=== PATIENT | male | born 1950 | race Caucasian/White ===

== ENCOUNTER 2020-11-25 20:58 | Emergency (ER) | payer OTHER ==
[2020-11-25] MEDS ORDERED: FENTANYL CITR 100 MCG/2 ML ONE (21:46)
[2020-11-25 22:02] LABS: Basophils % 0.6 % (0-1.3); Hematocrit 46.2 % (39.6-49.0); Lymphocytes % 11.5 % (15.3-44.8); MPV 8.6 fL (7.6-11.3); RBC Red Blood Cell Count 4.87 M/uL (4.33-5.43)
[2020-11-25 22:11] LABS: Potassium 3.7 mmol/L (3.5-5.1)
--- NOTE | 2020-11-25 22:18 | EDPHYS ---
Physician Documentation [facility] Name: Madhav Mendez Age: 70 yrs Sex: Male : 1950 Arrival Date: 11/25/2020 Time: 21:19 Bed 13 Private MD: ED Physician Shola Cook HPI: 11/25 21:26 This 70 yrs old Male presents to ER via Unassigned with complaints of Fall pm1 Injury. 21:26 Details of fall: The patient fell from an upright position, while walking. Onset: The pm1 symptoms/episode began/occurred just prior to arrival. Associated injuries: The patient sustained left hip. Severity of symptoms: in the emergency department the symptoms are unchanged. The patient has not experienced similar symptoms in the past. 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 Patient was walking to the trash can placing primarily all his weight on the right leg and holding on with his right hand. He turned and fell on his left hip. No headache, head injury, neck pain or LOC. Presenting with left hip pain. Historical: - Allergies: 23:09 No Known Allergies; - Home Meds: 23:09 None [Active]; - PMHx: 23:09 Diabetes - NIDDM; - PSHx: 23:09 Tonsillectomy; - Immunization history:: Adult Immunizations not up to date. - Immunization history: Last tetanus immunization: unknown. - Social history:: Smoking status: Patient/guardian denies using. ROS: 21:26 Constitutional: Negative for fever, chills, and weight loss, Cardiovascular: Negative pm1 for chest pain, palpitations, and edema, Respiratory: Negative for shortness of breath, cough, wheezing, and pleuritic chest pain, Abdomen/GI: Negative for abdominal pain, nausea, vomiting, diarrhea, and constipation, Back: Negative for injury and pain. 21:26 Skin: Negative for injury, rash, and discoloration, Neuro: Negative for headache, weakness, numbness, tingling, and seizure. 21:26 MS/extremity: Positive for pain, of the left hip. Exam: 21:26 Constitutional: This is a well developed, well nourished patient who is awake, alert, pm1 and in no acute distress. Head/Face: Normocephalic, atraumatic. Neck: Trachea midline, no thyromegaly or masses palpated, and no cervical lymphadenopathy. Supple, full range of motion without nuchal rigidity, or vertebral point tenderness. No Meningismus. 21:26 Skin: Warm, dry with normal turgor. Normal color with no rashes, no lesions, and no evidence of cellulitis. 21:26 Cardiovascular: Exam negative for acute changes, Rate: normal, Rhythm: regular, Pulses: no pulse deficits are appreciated. 21:26 Respiratory: Exam negative for acute changes, respiratory distress, shortness of breath. 21:26 Musculoskeletal/extremity: Extremities: grossly normal except: noted in the left hip: pain, tenderness, Pulses: noted to be 2+ in the left dorsalis pedis artery, the left foot Sensation intact. 21:26 Neuro: Exam negative for acute changes, Orientation: is normal, Mentation: is normal. Vital Signs: 21:30 BP 187 / 74; Pulse 9; Resp 18; Temp 97.8; Pulse Ox 100% ; Weight 68.04 kg; Height 5 ft. 7 in. (170.18 cm); Pain 9/10; 23:00 BP 164 / 64; Pulse 81; Resp 18; Pulse Ox 96% on R/A; 23:30 BP 139 / 72; Pulse 72; Resp 18; Pulse Ox 97% on R/A; 11/26 00:30 BP 161 / 76; Pulse 76; Resp 18; Pulse Ox 95% ; 11/25 21:30 Body Mass Index 23.49 (68.04 kg, 170.18 cm) Shin Coma Score: 11/25 21:30 Eye Response: spontaneous(4). Verbal Response: oriented(5). Motor Response: obeys wh commands(6). Total: 15. Trauma Score (Adult): 21:30 Eye Response: spontaneous(1); Verbal Response: oriented(1); Motor Response: obeys wh commands(2); Systolic BP: > 89 mm Hg(4); Respiratory Rate: 10 to 29 per min(4); [place] Score: 15; Trauma Score: 12 MDM: 21:21 Patient medically screened. pm1 22:10 Data reviewed: vital signs. pm1 22:10 Counseling: I had a detailed discussion with the patient and/or guardian regarding: the pm1 historical points, exam findings, and any diagnostic results supporting the discharge/admit diagnosis, radiology results, the need to transfer to another facility, [facility] does not immediately have the required specialist, No orthopedics absorption operator. 11/25 21:25 Order name: Basic Metabolic Panel; Complete Time: 22:31 11/25 21:25 Order name: CBC with Diff; Complete Time: 22:31 11/25 21:25 Order name: Type And Screen; Complete Time: 00:35 11/25 21:32 Order name: Hip Left Wo Con EDMS 11/25 21:25 Order name: Labs collected and sent; Complete Time: 21:48 11/25 22:31 Order name: NPO; Complete Time: 22:48 pm1 Administered Medications: 21:48 Drug: fentaNYL (PF) 25 mcg {Note: RASS 0.} Route: IVP; Site: right forearm; 23:13 Follow up: Response: No adverse reaction; Pain is decreased; RASS: Alert and Calm (0) 22:42 Drug: NS 0.9% 1000 ml Route: IV; Rate: 100 ml/hr; Site: right forearm; 23:14 Follow up: Response: No adverse reaction; IV Status: Infusion continued upon transfer wh 22:44 Drug: morphine 4 mg {Note: RASS 0.} Route: IVP; Site: right forearm; 23:13 Follow up: Response: No adverse reaction; Pain is decreased; RASS: Alert and Calm (0) 22:46 Drug: Zofran (Ondansetron) 4 mg Route: IVP; Site: right forearm; 23:12 Follow up: Response: No adverse reaction; Nausea is decreased 11/26 00:26 Drug: fentaNYL (PF) 25 mcg {Note: RASS 0.} Route: IVP; Site: right forearm; 01:02 Follow up: Response: No adverse reaction; Pain is decreased; RASS: Alert and Calm (0) Disposition: 05:33 Co-signature as Attending Physician, Shola Cook MD. [email or web address] Disposition: 11/25/20 22:17 Transfer ordered to [facility]. Diagnosis is Fracture of unspecified part of neck of left femur. - Reason for transfer: Specialty. - Accepting physician is [facility]. - Condition is Stable. - Problem is new. - Symptoms have improved. Signatures: Dispatcher [employer] EDTX Dereck Barnes, AUTOCUTTER AUTOCUTTER pm1 Sukhjinder Mccormack Maurice, MD MD mh7 Corrections: (The following items were deleted from the chart) 11/25 21:32 21:29 CT LEFT HIP WO CONTRAST ordered. EDTX EDTX 11/26 01:03 11/25 22:17 11/25/2020 22:17 Transfer ordered to [facility]. Diagnosis is wh Fracture of unspecified part of neck of left femur. Reason for transfer: Specialty. Accepting physician is [facility]. Condition is Stable. Problem is new. Symptoms have improved. pm1
[2020-11-25] MEDS ORDERED: NA CHLORIDE 0.9% 1,000 ML ONE (22:52)
[2020-11-25] MEDS ORDERED: MORPHINE 4 MG/ML SYR ONE (22:52)
[2020-11-25] MEDS ORDERED: ONDANSETRON 4 MG/2 ML VIAL ONE (22:52)
[2020-11-26] MEDS ORDERED: FENTANYL CITR 100 MCG/2 ML ONE (00:31)
--- NOTE | 2020-11-26 01:04 | ER ---
Nurse's Notes [facility] Name: Madhav Mendez Age: 70 yrs Sex: Male : 1950 Arrival Date: 11/25/2020 Time: 21:19 Bed 13 Private MD: Diagnosis: Fracture of unspecified part of neck of left femur Presentation: 11/25 21:20 Chief complaint: EMS states: fell from standing position, denies LOC and not on blood wh thinners. PT C/O left hip pain. Pt with Hx of CVA with left sided partial paralysis. Care prior to arrival: Glucose check: 132. Mechanism of Injury: Fall. Trauma event details: Injury occurred in the [facility]. 21:20 Acuity: KAITY 3 21:20 Method Of Arrival: EMS: [facility] 21:30 Coronavirus screen: Client denies travel out of the [place] in the last 14 days. At this time, the client does not indicate any symptoms associated with coronavirus-19. Ebola Screen: Patient negative for fever greater than or equal to 101.5 degrees Fahrenheit, and additional compatible Ebola Virus Disease symptoms Patient denies exposure to infectious person. Initial Sepsis Screen: Does the patient meet any 2 criteria? No. Patient's initial sepsis screen is negative. Does the patient have a suspected source of infection? No. Patient's initial sepsis screen is negative. Risk Assessment: Do you want to hurt yourself or someone else? Patient reports no desire to harm self or others. Onset of symptoms was November 25, 2020. Trauma Activation: Physician: ED Physician; Name: ; Notified At: 21:25; Arrived At: 21:25 Physician: General Surgeon; Name: ; Notified At: 21:25; Arrived At: Physician: Radiology; Name: ; Notified At: 21:25; Arrived At: Physician: Respiratory; Name: ; Notified At: 21:25; Arrived At: Physician: Lab; Name: ; Notified At: 21:25; Arrived At: Historical: - Allergies: 23:09 No Known Allergies; - Home Meds: 23:09 None [Active]; - PMHx: 23:09 Diabetes - NIDDM; - PSHx: 23:09 Tonsillectomy; - Immunization history:: Adult Immunizations not up to date. - Immunization history: Last tetanus immunization: unknown. - Social history:: Smoking status: Patient/guardian denies using. Screenin:30 Abuse screen: Denies threats or abuse. Denies injuries from another. Nutritional screening: No deficits noted. Tuberculosis screening: No symptoms or risk factors identified. Fall Risk Fall in past 12 months (25 points). Secondary diagnosis (15 points) CVA. Primary Survey: 21:30 NO uncontrolled hemorrhage observed. A: The patient is alert. Airway: patent. Breathing/Chest: Respiratory pattern: regular, Respiratory effort: spontaneous, unlabored. Circulation: Pulses: palpable left dorsalis pedis artery. Skin color: pink. Disability Alert. Exposure/Environment: All clothing and personal items were removed. Forensic evidence collection is not deemed to be indicated at this time. Items placed in patient belonging bag. There is no evidence of uncontrolled external bleeding. Obvious injury(ies) are noted at this time: hip fracture A warming method has been applied: A warm blanket has been provided to the patient. 22:30 Reassessment Airway Airway Patent Breathing/Chest Respiratory pattern Regular wh Respiratory effort Spontaneous Unlabored Circulation Color [place] Disability Alert. Assessment: 21:30 General: Appears in no apparent distress. Behavior is calm, cooperative, appropriate for age. Pain: Complains of pain in left hip Pain does not radiate. Neuro: Level of Consciousness is awake, alert, obeys commands, Oriented to person, place, time, situation, Appropriate for age. Cardiovascular: Capillary refill < 3 seconds. Respiratory: Airway is patent Respiratory effort is even, unlabored, Respiratory pattern is regular, symmetrical. GI: Abdomen is flat, non-distended. : No signs and/or symptoms were reported regarding the genitourinary system. EENT: No signs and/or symptoms were reported regarding the EENT system. Derm: Skin is intact, is healthy with good turgor, Skin is pink, warm \T\ dry. normal. Musculoskeletal: Range of motion: limited in left arm and left leg Hypertrophy noted in left arm. 23:00 Reassessment: Patient appears in no apparent distress at this time. No changes from previously documented assessment. Patient and/or family updated on plan of care and expected duration. Pain level reassessed. Patient is alert, oriented x 3, equal unlabored respirations, skin warm/dry/pink. 23:43 Reassessment: Report given to Vidhi Felix RN. 11/26 00:30 Reassessment: Patient appears in no apparent distress at this time. Patient and/or wh family updated on plan of care and expected duration. Pain level reassessed. Patient is alert, oriented x 3, equal unlabored respirations, skin warm/dry/pink. Vital Signs: 11/25 21:30 BP 187 / 74; Pulse 9; Resp 18; Temp 97.8; Pulse Ox 100% ; Weight 68.04 kg; Height 5 ft. wh 7 in. (170.18 cm); Pain 9/10; 23:00 BP 164 / 64; Pulse 81; Resp 18; Pulse Ox 96% on R/A; wh 23:30 BP 139 / 72; Pulse 72; Resp 18; Pulse Ox 97% on R/A; 11/26 00:30 BP 161 / 76; Pulse 76; Resp 18; Pulse Ox 95% ; 11/25 21:30 Body Mass Index 23.49 (68.04 kg, 170.18 cm) Shin Coma Score: 11/25 21:30 Eye Response: spontaneous(4). Verbal Response: oriented(5). Motor Response: obeys commands(6). Total: 15. Trauma Score (Adult): 21:30 Eye Response: spontaneous(1); Verbal Response: oriented(1); Motor Response: obeys commands(2); Systolic BP: > 89 mm Hg(4); Respiratory Rate: 10 to 29 per min(4); [place] Score: 15; Trauma Score: 12 ED Course: 21:19 Patient arrived in ED. 21:20 Sukhjinder Mccormack is Primary Nurse. wh 21:21 Dereck Barnes NP is PHCP. pm1 21:21 Shola Cook MD is Attending Physician. pm1 21:30 Patient maintains SpO2 saturation greater than 95% on room air. Thermoregulation: warm wh blanket given to patient. 21:30 Arm band placed on right wrist. 21:30 Patient has correct armband on for positive identification. Bed in low position. Call wh light in reach. Side rails up X 1. Pulse ox on. NIBP on. 21:40 Inserted saline lock: 20 gauge in right forearm, using aseptic technique. Blood wh collected. 21:52 Hip Left Wo Con In Process Unspecified. EDMS 23:05 Triage completed. 23:12 Initiated transfer at [facility] with Nell Harper. Stated she would check on tt3 beds and call back. 23:27 Nell Harper called back with admin approval. The orthopedic surgeon accepted tt3 without conference. The pt is going to [facility] ER. Nurse to call report to . Face sheet and MOT faxed to per Nell's request. 11/26 01:00 No provider procedures requiring assistance completed. Patient transferred, IV remains in place. Administered Medications: 11/25 21:48 Drug: fentaNYL (PF) 25 mcg {Note: RASS 0.} Route: IVP; Site: right forearm; 23:13 Follow up: Response: No adverse reaction; Pain is decreased; RASS: Alert and Calm (0) 22:42 Drug: NS 0.9% 1000 ml Route: IV; Rate: 100 ml/hr; Site: right forearm; 23:14 Follow up: Response: No adverse reaction; IV Status: Infusion continued upon transfer 22:44 Drug: morphine 4 mg {Note: RASS 0.} Route: IVP; Site: right forearm; 23:13 Follow up: Response: No adverse reaction; Pain is decreased; RASS: Alert and Calm (0) 22:46 Drug: Zofran (Ondansetron) 4 mg Route: IVP; Site: right forearm; 23:12 Follow up: Response: No adverse reaction; Nausea is decreased 11/26 00:26 Drug: fentaNYL (PF) 25 mcg {Note: RASS 0.} Route: IVP; Site: right forearm; 01:02 Follow up: Response: No adverse reaction; Pain is decreased; RASS: Alert and Calm (0) Intake: 11/25 23:30 IV: 300ml; Total: 300ml. Outcome: 22:17 ER care complete, transfer ordered by . pm1 23:00 Patient's length of stay in the Emergency Department was greater than 2 hours. Pt for transferPatient's length of stay extended due to 11/26 01:00 Transferred by ground EMS to [facility], Transfer form completed. X-rays sent wh w/ patient. Note: Report given to [place] [id number] [facility] Condition: stable Instructed on the need for transfer. 01:03 Patient left the ED. Signatures: Dispatcher [employer] EDMS Dereck Barnes, JOEY KEYBOARD SPECIALIST pm1 Sukhjinder Mccormack Ghulam Wild tt3 Corrections: (The following items were deleted from the chart) 11/25 23:16 23:14 Initiated transfer at [facility] with Nell Harper. Stated she would tt3 check on beds and call back. tt3
[2020-11-26 01:08] VITALS: TEMP 97.8
[2020-11-26 01:17] VITALS: BP 161/76; O2SAT 95
--- NOTE | 2020-11-26 13:19 | RAD REPORT ---
EXAM DESCRIPTION: Chest Single View CLINICAL HISTORY: 1 years Male, CHEST PAIN COMPARISON: None FINDINGS: No focal lung consolidation. No pleural effusion. No pneumothorax. Cardiomediastinal silhouette is within normal limits. Mild vascular congestion. No acute osseous abnormality. IMPRESSION: No acute cardiopulmonary disease. Electronically signed by: Leonardo Dawson DO 11/25/2020 10:40 PM LARDER COOK Due to temporary technical issues with the PACS/Fluency reporting system, reports are being signed by the in house radiologists without review as a courtesy to insure prompt reporting. The interpreting radiologist is fully responsible for the content of the report.
== END 2020-11-26 01:03 | disposition short-term general hospital (02) ==
LOC: ER 20:58
DX: S72.002A Fracture of unspecified part of neck of left femur, initial encounter for closed fracture (principal); W18.30XA Fall on same level, unspecified, initial encounter; Y93.9 Activity, unspecified; Y92.9 Unspecified place or not applicable; Z86.73 Personal history of transient ischemic attack (TIA), and cerebral infarction without residual deficits
CPT/HCPCS: 96361; 85025; 80048; 36415; 86900; 86850; 86901; 73700; 96375; 96374; 99285; J3010 ×2; J7030; J2405

== ENCOUNTER 2023-04-29 03:08 | Emergency (ER) | payer OTHER ==
[2023-04-29 03:30] LABS: Blood Gas Oxyhemoglobin 96.2 % (94-97); Blood O2 Saturation 98.4 % (92-98.5)
[2023-04-29 03:49] LABS: Absolute Lymphocytes (CBC) 0.9 K/uL (0.7-4.9); Hematocrit 42.9 % (39.6-49.0); Lymphocytes % 2.2 % (15.3-44.8); MCV 91.4 fL (80-100); MPV 7.1 fL (7.6-11.3); RBC Red Blood Cell Count 4.69 M/uL (4.33-5.43)
[2023-04-29 04:02] LABS: Protime INR 1.59
[2023-04-29 04:10] LABS: Bilirubin Total 0.7 mg/dL (0.2-1.0); Potassium 5.2 mEq/L (3.5-5.1)
[2023-04-29] MEDS ORDERED: CEFEPIME 2 GM VIAL ONE (04:24)
[2023-04-29 04:25] LABS: Troponin High Sensitivity 398.8 pg/mL (<58.9)
[2023-04-29] MEDS ORDERED: VANCOMYCIN 1 GM/VIAL ONE (04:25)
[2023-04-29] MEDS ORDERED: NA CHLORIDE 0.9% 250 ML ONE (04:25)
[2023-04-29] MEDS ORDERED: NA CHLORIDE 0.9% 100 ML ONE (04:25)
[2023-04-29 05:26] LABS: Blood Morphology Comment NOT SEEN (NOT SEEN); Platelet Estimate INCR
[2023-04-29 06:38] LABS: SARS-CoV-2 Antigen Rapid Res Negative (Negative)
--- NOTE | 2023-04-29 06:51 | EDPHYS ---
Physician Documentation [facility] Name: Madhav Mendez Age: 73 yrs Sex: Male : 1950 Arrival Date: 04/29/2023 Time: 03:08 Bed 2 Private MD: ED Physician Jimmy Isaac HPI: 04/29 03:16 This 73 yrs old Male presents to ER via Unassigned with complaints of Breathing rt Difficulty. 03:16 Patient presents to the ED from long term for difficulty breathing, low oxygen rt saturations. Patient's oxygen saturations were reportedly 54%, improved on the CPAP by EMS. The patient states that breathing is doing better. Unclear the time of onset is. Patient denies other acute complaints at this time. Symptoms are severe in severity, no other aggravating or alleviating factors.. Historical: - Allergies: 03:19 No Known Allergies; pf1 - PMHx: 03:19 Diabetes mellitus; Cellulitis; covid-19; Anemia; neuropathy; Hypertensive disorder; pf1 generalized weakness; Cerebrovascular accident; left sided deficients; hemiplegia and hemiparesis; cognitive communication deficient; hyperlipidemia; Depressive disorder; gangrene of left lower extremity/foot; Peripheral vascular disease; Alcohol dependence; - Immunization history:: Pneumococcal vaccine is up to date, Flu vaccine is up to date. - Social history:: Smoking status: unknown. ROS: 03:16 Constitutional: Negative for fever, chills, and weight loss, Cardiovascular: Negative rt for chest pain, palpitations, and edema, Abdomen/GI: Negative for abdominal pain, nausea, vomiting, diarrhea, and constipation, Neuro: Negative for headache, weakness, numbness, tingling, and seizure, Psych: Negative for depression, anxiety, suicide ideation, homicidal ideation, and hallucinations. 03:16 Respiratory: Positive for cough, shortness of breath. Exam: 03:16 Constitutional: This is a well developed, well nourished patient who is awake, alert, rt and in no acute distress. Head/Face: Normocephalic, atraumatic. Chest/axilla: Normal chest wall appearance and motion. Nontender with no deformity. No lesions are appreciated. Cardiovascular: Regular rate and rhythm with a normal S1 and S2. No gallops, murmurs, or rubs. Normal PMI, no JVD. No pulse deficits. Abdomen/GI: Soft, non-tender, with normal bowel sounds. No distension or tympany. No guarding or rebound. No evidence of tenderness throughout. 03:16 Neuro: Awake and alert, GCS 15, oriented to person, place, time, and situation. Cranial nerves II-XII grossly intact. Motor strength 5/5 in all extremities. Sensory grossly intact. Cerebellar exam normal. Normal gait. Psych: Awake, alert, with orientation to person, place and time. Behavior, mood, and affect are within normal limits. 03:16 Respiratory: Diminished breath sounds with faint wheezes heard on all lung peterson, moderate respiratory distress. 03:16 Musculoskeletal/extremity: Dry gangrene noted to left foot. 03:53 ECG was reviewed by the Attending Physician. rt Vital Signs: 03:10 BP 127 / 65; Pulse 100; Resp 14; Temp 97.7; Pulse Ox 100% on BiPAP; Weight 61.5 kg; pf1 04:38 BP 134 / 72; Pulse 97; Resp 22 S; Pulse Ox 97% on BiPAP; as6 05:52 BP 131 / 64; Pulse 90; Resp 12 S; Pulse Ox 99% on 90 lpm BiPAP; as6 06:40 BP 127 / 66; Pulse 94; Resp 13 S; Pulse Ox 100% on 90 lpm BiPAP; as6 07:32 BP 140 / 70; Pulse 89; Resp 16; Temp 97.2; Pulse Ox 100% ; ll1 08:30 BP 136 / 62; Pulse 83; Resp 15; Pulse Ox 98% on BiPAP; ll1 09:18 BP 124 / 54; Pulse 89; Resp 14; Pulse Ox 100% on BiPAP; ll1 10:12 BP 112 / 60; Pulse 92; Resp 16; Pulse Ox 100% on BiPAP; ll1 10:43 BP 112 / 61; Pulse 88; Resp 15; Pulse Ox 100% on BiPAP; ll1 11:03 BP 117 / 61; Pulse 88; Resp 15; Pulse Ox 99% on BiPAP; ll1 11:37 BP 111 / 59; Pulse 90; Resp 16; Temp 97.5(TE); Pulse Ox 100% ; ll1 MDM: 03:12 Patient medically screened. rt 06:50 Differential diagnosis: Sepsis, pneumonia, pneumothorax, pulmonary embolism, renal rt failure. Data reviewed: vital signs, nurses notes, lab test result(s), EKG, radiologic studies. Consideration of Admission/Observation Patient was admitted/placed on observation. Management of patient was discussed with the following: Hospitalist: States that patient would best be served by going to a higher level of care, will initiate transfer. I considered the following discharge prescriptions or medication management in the emergency department Medications were administered in the Emergency Department. See MAR. Independent interpretation of the following test(s) in the Emergency Department X-Ray: My interpretation is No pneumothorax, interpretation of the x-ray images. Care significantly affected by the following chronic conditions: Diabetes. Counseling: I had a detailed discussion with the patient and/or guardian regarding: the historical points, exam findings, and any diagnostic results supporting the discharge/admit diagnosis, lab results, radiology results, the need to transfer to another facility, for higher level of care. Response to treatment: the patient's symptoms have markedly improved after treatment. 07:38 ED course: Accepted for transfer to [facility], hemodynamically stable for transfer. rn . 04/29 03:13 Order name: Blood Culture Adult (2) rt 04/29 03:13 Order name: CBC with Diff; Complete Time: 05:28 rt 04/29 03:13 Order name: CMP; Complete Time: 04:25 rt 04/29 03:13 Order name: Lactate w/ 2H reflex if indic.; Complete Time: 04:25 rt 04/29 03:13 Order name: Protime (+inr); Complete Time: 04:07 rt 04/29 03:13 Order name: Ptt, Activated; Complete Time: 04:07 rt 04/29 03:13 Order name: Troponin High Sensitivity; Complete Time: 04:25 rt 04/29 03:13 Order name: BNP; Complete Time: 04:25 rt 04/29 03:13 Order name: ABG; Complete Time: 04:07 rt 04/29 05:27 Order name: Manual Differential; Complete Time: 05:28 EDMS 04/29 06:03 Order name: SARS RAPID; Complete Time: 06:44 ds4 04/29 07:12 Order name: Lactate Sepsis 2 HR Follow-up; Complete Time: 07:33 EDMS 04/29 03:13 Order name: Chest Single View XRAY rt 04/29 03:13 Order name: BIPAP rt 04/29 04:46 Order name: Foot Left 3 View XRAY la1 04/29 05:06 Order name: Chest Wo Con CT la1 04/29 03:13 Order name: EKG; Complete Time: 03:14 rt 04/29 03:13 Order name: Accucheck; Complete Time: 03:57 rt 04/29 03:13 Order name: Cardiac monitoring; Complete Time: 03:41 rt 04/29 03:13 Order name: EKG - Nurse/Tech; Complete Time: 03:53 rt 04/29 03:13 Order name: IV Saline Lock - Large Bore; Complete Time: 03:41 rt 04/29 03:13 Order name: Labs collected and sent; Complete Time: 03:41 rt 04/29 03:13 Order name: O2 Per Protocol; Complete Time: 03:41 rt 04/29 03:13 Order name: O2 Sat Monitoring; Complete Time: 03:41 rt 04/29 03:13 Order name: Vital Signs; Complete Time: 03:41 rt EC:53 Rate is 99 beats/min. Rhythm is regular, Normal Sinus Rhythm with No ectopy. QRS [place] rt is Normal. PA interval is normal. QRS interval is normal. QT interval is normal. No Q waves. T waves are Normal. No ST changes noted. Interpreted by me. Administered Medications: 04:20 Drug: Cefepime IVPB 2 grams Route: IVPB; Rate: 200 ml/hr; Infused Over: 30 mins; Site: as6 left antecubital; 07:31 Follow up: IV Status: Completed infusion; IV Intake: 100ml ll1 04:38 Drug: vancoMYCIN IVPB 1 grams Route: IVPB; Infused Over: 2 hrs; Site: right antecubital;as6 07:31 Follow up: Response: No adverse reaction; IV Status: Completed infusion; IV Intake: ll1 250ml 07:37 CANCELLED (Duplicate Order): NS 0.9% IV 1000 ml IV at 1000 ml once rn 07:48 Drug: NS 0.9% IV (30 ml/kg) 30 ml/kg {Note: 1 L NS L AC, 1 L NS R AC.} Route: IV; Rate: ll1 bolus; Site: left antecubital; 09:00 Follow up: Response: No adverse reaction; IV Status: Completed infusion; IV Intake: ll1 2000ml Disposition: 06:55 Critical Care:. rt Disposition Summary: 04/29/23 06:50 Transfer Ordered Transfer Location: [facility] rt Reason: Higher level of care rt Condition: Serious rt Problem: new rt Symptoms: have improved rt Accepting Physician: (04/29/23 11:58) ll1 Diagnosis - Acute and chronic respiratory failure with hypoxia rt - Acute kidney failure, unspecified rt - Severe sepsis without septic shock rt - Dry gangrene of left lower extremity rt Forms: - Medication Reconciliation Form rt - SBAR form rt Critical care time excluding procedures: 06:55 Critical care time: Bedside Care: 30 minutes, Consultation: 10 minutes. Total time: 40 rt minutes Signatures: Dispatcher [employer] EDMS Jimmy Isaac MD MD rn Alfa Taylor, GEOLOGIST PETROLEUM-C GEOLOGIST PETROLEUM-Cla1 Calvin Starks RN RN ll1 Isak Mobley RN RN as6 Guero Mcneal MD MD rt Mariaelena Huerta RN RN pf1 Corrections: (The following items were deleted from the chart) 03:29 03:19 PMHx: Diabetes - NIDDM; pf1 pf1 07:37 07:37 NS 0.9% IV 1000 ml IV at 1000 ml once ordered. rn rn 11:58 06:50 rt ll1
--- NOTE | 2023-04-29 06:51 | ER ---
Nurse's Notes [facility] Name: Madhav Mendez Age: 73 yrs Sex: Male : 1950 Arrival Date: 04/29/2023 Time: 03:08 Bed 2 Private MD: Diagnosis: Acute and chronic respiratory failure with hypoxia;Acute kidney failure, unspecified;Severe sepsis without septic shock;Dry gangrene of left lower extremity Presentation: 04/29 03:10 Chief complaint: EMS states: EMS C/O patient having difficulty breathing with 02 pf1 saturation of 50's on RA. EMS stated patient 02 saturation in the 80's on Nonrebreather then placed CPAP on patient. Patient has gangrene to left lower extremity and foot. Patient from [facility]. 03:10 Method Of Arrival: EMS: [facility] pf1 03:10 Initial Sepsis Screen: Does the patient meet any 2 criteria? No. Patient's initial pf1 sepsis screen is negative. Does the patient have a suspected source of infection? No. Patient's initial sepsis screen is negative. Risk Assessment: Do you want to hurt yourself or someone else? Unable to obtain. 03:10 Acuity: KAITY 2 pf1 03:30 Ebola Screen: Patient negative for fever greater than or equal to 101.5 degrees pf1 Fahrenheit, and additional compatible Ebola Virus Disease symptoms. 07:30 Coronavirus screen: Client denies travel out of the [place] in the last 14 days. ll1 difficulty breathing, fatigue, shortness of breath, Client presents with at least one sign or symptom that may indicate coronavirus-19. Standard/surgical mask placed on the client. Onset of symptoms is unknown. Historical: - Allergies: 03:19 No Known Allergies; pf1 - PMHx: 03:19 Diabetes mellitus; Cellulitis; covid-19; Anemia; neuropathy; Hypertensive disorder; pf1 generalized weakness; Cerebrovascular accident; left sided deficients; hemiplegia and hemiparesis; cognitive communication deficient; hyperlipidemia; Depressive disorder; gangrene of left lower extremity/foot; Peripheral vascular disease; Alcohol dependence; - Immunization history:: Pneumococcal vaccine is up to date, Flu vaccine is up to date. - Social history:: Smoking status: unknown. Screenin:58 [facility] ED Fall Risk Assessment (Adult) Score/Fall Risk Level 0 - 2 = Low Risk. Abuse as6 screen: Denies threats or abuse. Denies injuries from another. Nutritional screening: No deficits noted. Tuberculosis screening: No symptoms or risk factors identified. Assessment: 03:25 General: Appears ill, slender, unkempt. Pain: Denies pain. Neuro: Level of as6 Consciousness is awake, alert, obeys commands. Cardiovascular: Pulses are absent in left posterior tibial artery and left dorsalis pedis artery. Respiratory: Respiratory effort is labored, Breath sounds are diminished bilaterally. Breath sounds with wheezes bilaterally. Derm: Wound noted left lateral ankle, lateral aspect of left foot, left Achilles, left heel, left medial ankle, medial aspect of left foot, anterior aspect of left ankle and dorsum of left foot Wound is blanked, gangrene. 03:25 Musculoskeletal: Capillary refill < 3 seconds, in left toes. contractor to left arm and as6 bilateral legs. 07:00 Reassessment: No changes from previously documented assessment. Report received from [facility] lieutenant shift supervisor RN. 07:20 Pain: Complains of pain in left leg Quality of pain is described as aching. Neuro: No ll1 deficits noted. Respiratory: Airway is patent Trachea midline Respiratory effort is even, labored, Respiratory pattern is regular, symmetrical, Patient placed on BiPAP: Respiratory Rate: 20 Breath sounds are clear bilaterally. 07:20 General: Appears uncomfortable, ill, unkempt, Behavior is cooperative, appropriate for [facility] age, quiet. 07:20 Derm: Skin is fragile, Skin is black, Skin temperature is cold Wound noted LLE. ll1 Musculoskeletal: Capillary refill is > 3 seconds, in left toes. Tenderness present in LLE. 07:21 Reassessment: No changes from previously documented assessment. Patient and/or family ll1 updated on plan of care and expected duration. Pain level reassessed. Dr. Isaac at . 08:15 Reassessment: No changes from previously documented assessment. Patient and/or family ll1 updated on plan of care and expected duration. Pain level reassessed. 09:18 Reassessment: No changes from previously documented assessment. Patient and/or family ll1 updated on plan of care and expected duration. Pain level reassessed. 10:15 Reassessment: No changes from previously documented assessment. Patient and/or family ll1 updated on plan of care and expected duration. Pain level reassessed. 11:05 Reassessment: No changes from previously documented assessment. Javier at [facility] skilled nursing notified of patient transfer. Given [facility] [employer] phone number. No questions at this time. Vital Signs: 03:10 BP 127 / 65; Pulse 100; Resp 14; Temp 97.7; Pulse Ox 100% on BiPAP; Weight 61.5 kg; pf1 04:38 BP 134 / 72; Pulse 97; Resp 22 S; Pulse Ox 97% on BiPAP; as6 05:52 BP 131 / 64; Pulse 90; Resp 12 S; Pulse Ox 99% on 90 lpm BiPAP; as6 06:40 BP 127 / 66; Pulse 94; Resp 13 S; Pulse Ox 100% on 90 lpm BiPAP; as6 07:32 BP 140 / 70; Pulse 89; Resp 16; Temp 97.2; Pulse Ox 100% ; ll1 08:30 BP 136 / 62; Pulse 83; Resp 15; Pulse Ox 98% on BiPAP; ll1 09:18 BP 124 / 54; Pulse 89; Resp 14; Pulse Ox 100% on BiPAP; ll1 10:12 BP 112 / 60; Pulse 92; Resp 16; Pulse Ox 100% on BiPAP; ll1 10:43 BP 112 / 61; Pulse 88; Resp 15; Pulse Ox 100% on BiPAP; ll1 11:03 BP 117 / 61; Pulse 88; Resp 15; Pulse Ox 99% on BiPAP; ll1 11:37 BP 111 / 59; Pulse 90; Resp 16; Temp 97.5(TE); Pulse Ox 100% ; ll1 ED Course: 03:09 Patient arrived in ED. pf1 03:11 Cori Garcia, KAYLA is Primary Nurse. aa9 03:12 Guero Mcneal MD is Attending Physician. rt 03:12 Maintain EMS IV. Dressing intact. Good blood return noted. Site clean \T\ dry. Gauge \T\ pf 1 site: 20 gauge to RAC. 03:33 Triage completed. pf1 03:41 Inserted saline lock: 20 gauge in left antecubital area, using aseptic technique. Blood as6 collected. 04:39 Arm band placed on. as6 04:44 Chest Single View XRAY In Process Unspecified. EDMS 04:58 Bed in low position. Call light in reach. Side rails up X2. as6 05:11 Foot Left 3 View XRAY In Process Unspecified. EDMS 05:[address] In Process Unspecified. EDMS 07:12 Attending Physician role handed off by Guero Mcneal MD rn 07:12 Jimmy Isaac MD is Attending Physician. rn 07:13 Notified ED physician of a critical lab result(s). repeat lactate 4.0. ll1 07:14 Primary Nurse role handed off by Cori Garcia, KAYLA ll1 07:14 Calvin Starks, KAYLA is Primary Nurse. ll1 07:30 No provider procedures requiring assistance completed. Patient transferred, IV remains ll1 in place. Administered Medications: 04:20 Drug: Cefepime IVPB 2 grams Route: IVPB; Rate: 200 ml/hr; Infused Over: 30 mins; Site: as6 left antecubital; 07:31 Follow up: IV Status: Completed infusion; IV Intake: 100ml ll1 04:38 Drug: vancoMYCIN IVPB 1 grams Route: IVPB; Infused Over: 2 hrs; Site: right antecubital;as6 07:31 Follow up: Response: No adverse reaction; IV Status: Completed infusion; IV Intake: ll1 250ml 07:37 CANCELLED (Duplicate Order): NS 0.9% IV 1000 ml IV at 1000 ml once rn 07:48 Drug: NS 0.9% IV (30 ml/kg) 30 ml/kg {Note: 1 L NS L AC, 1 L NS R AC.} Route: IV; Rate: ll1 bolus; Site: left antecubital; 09:00 Follow up: Response: No adverse reaction; IV Status: Completed infusion; IV Intake: ll1 2000ml Medication: 07:30 VIS not applicable for this client. ll1 Intake: 07:31 IV: 250ml; Total: 250ml. ll1 07:31 IV: 100ml; Total: 350ml. ll1 09:00 IV: 2000ml; Total: 2350ml. ll1 Outcome: 06:50 ER care complete, transfer ordered by . rt 07:31 Condition: stable ll1 07:31 Instructed on the need for transfer. 11:12 Transferred by ground EMS to [facility], Transfer form completed. ll1 Note: Report called to Kia Davis RN at [place] [id number]. 11:58 Patient left the ED. ll1 Signatures: Dispatcher [employer] EDMS Jimmy Isaac MD MD rn Lewis, Lynsay, RN RN ll1 Isak Mobley RN RN as6 Cori Garcia RN RN aa9 Guero Mcneal MD MD rt Mariaelena Huerta RN RN pf1 Corrections: (The following items were deleted from the chart) 03:29 03:19 PMHx: Diabetes - NIDDM; pf1 pf1 07:30 07:27 General: Appears uncomfortable, ill, unkempt, Behavior is cooperative, ll1 appropriate for age, quiet, ll1 07:30 07:20 Respiratory: Airway is patent Trachea midline Respiratory effort is even, ll1 labored, Respiratory pattern is regular, symmetrical, Patient placed on BiPAP: Respiratory Rate: 20 ll1
[2023-04-29] MEDS ORDERED: NA CHLORIDE 0.9% 2,000 ML ONE (07:50)
[2023-04-29 12:44] VITALS: BP 111/59; TEMP 97.5; O2SAT 100
--- NOTE | 2023-04-29 16:08 | RAD REPORT ---
EXAM DESCRIPTION: RAD - Chest Single View - 04/29/2023 4:43 am CLINICAL HISTORY: DYSPNEA TECHNIQUE: AP chest COMPARISON: None available for comparison FINDINGS: CHEST: Heart: The cardiomediastinal silhouette is within normal limits. Lungs: No focal consolidation. The lung apices are partially obscured by the patient's chin. Mediastinum: Unremarkable Pleura: No appreciable effusion. No pneumothorax. Bones: Old right rib fractures. IMPRESSION: 1. No acute cardiopulmonary disease. 2. Old right rib fractures. Electronically signed by: Duong Caraballo MD 04/29/2023 5:25 AM CDT Due to temporary technical issues with the PACS/Fluency reporting system, reports are being signed by the in house radiologists without review as a courtesy to insure prompt reporting. The interpreting radiologist is fully responsible for the content of the report.
--- NOTE | 2023-04-29 16:15 | RAD REPORT ---
EXAM DESCRIPTION: CT - Thorax Wo Con - 04/29/2023 6:41 am COMPARISON: None. CLINICAL HISTORY: [facility] MAIN dyspnea, hypoxia TECHNIQUE: CT images through the chest without IV contrast. Multiplanar reformats. Automated expos ure control was utilized on this examination as a dose lowering technique. FINDINGS: CT CHEST FINDINGS Heart and mediastinum: Heart size is normal. No lymphadenopathy. Vascular: Severe multivessel atherosclerosis. Thyroid gland: Visualized portions are normal. Lungs: Severe emphysema. Calcified granulomas are present. Consolidations and groundglass opacities a re present in the lower lobes. Airways: No filling defects. No bronchiectasis. Pleura: No pneumothorax. No significant pleural effusion. Subphrenic structures: Mild distal esophageal wall thickening. Cirrhosis. Nonobstructing bilateral re nal calculi. Musculoskeletal and soft tissues: Chronic T11 compression deformity. IMPRESSION: *The exam is limited by motion artifact. 1. Severe emphysema. Pneumonia or scarring of the lower lobes. 2. Severe atherosclerosis. 3. Cirrhosis. 4. Nonobstructing renal calculi. 5. Mild distal esophageal wall thickening may indicate mild esophagitis. Electronically signed by: Pradip Bowen MD 04/29/2023 6:16 AM CDT Due to temporary technical issues with the PACS/Fluency reporting system, reports are being signed by the in house radiologists without review as a courtesy to insure prompt reporting. The interpreting radiologist is fully responsible for the content of the report.
--- NOTE | 2023-04-29 16:22 | RAD REPORT ---
EXAM DESCRIPTION: RAD - Foot Left 3 View - 04/29/2023 5:09 am CLINICAL HISTORY: Gangrene; COMPARISON: None. FINDINGS: The patient is osteopenic which limits evaluation. There is no fracture or dislocation. Th e interphalangeal joints of the phalanges are not well profiled. The visualized joint spaces are in a natomic alignment. There is no evidence for bony erosion or destruction. The soft tissues are unr emarkable. No radiopaque foreign body. IMPRESSION: 1. No acute findings of the left foot. 2. Osteopenia limits evaluation. Electronically signed by: Daniel Israel MD 04/29/2023 5:48 AM CDT Due to temporary technical issues with the PACS/Fluency reporting system, reports are being signed by the in house radiologists without review as a courtesy to insure prompt reporting. The interpreting radiologist is fully responsible for the content of the report.
--- NOTE | 2023-05-01 07:12 | EKG ---
Test Date: 2023-04-29 Test Time: 03:50:28 Flattening Press Operator: MEASUREMENT RESULTS: Intervals: Rate: 99 MD: 128 QRSD: 84 QT: 354 QTc: 454 [place]: P: 74 MD: 128 QRS: 69 T: 96 INTERPRETIVE STATEMENTS: Normal sinus rhythm Normal ECG No previous ECG available for comparison Electronically Signed On 05-01-23 07:07:18 CDT by Rajesh Guzman
== END 2023-04-29 11:58 | disposition short-term general hospital (02) ==
LOC: ER 03:08
DX: J96.21 Acute and chronic respiratory failure with hypoxia (principal); A41.9 Sepsis, unspecified organism; N17.9 Acute kidney failure, unspecified; R65.20 Severe sepsis without septic shock; E11.52 Type 2 diabetes mellitus with diabetic peripheral angiopathy with gangrene; I96 Gangrene, not elsewhere classified; I10 Essential (primary) hypertension; F10.20 Alcohol dependence, uncomplicated; Z20.822 Contact with and (suspected) exposure to COVID-19
CPT/HCPCS: 93005; 87040 ×2; 85025; 36415; 85610; 83605 ×2; 85730; 84484; 80053; 83880; 71250; 71045; 73630; 82805; 99285; 87811; 94660; J0692; J7050; J7030